=== PATIENT | female | born 1940 | race Caucasian/White ===

== ENCOUNTER → 2017-05-10 | Outpatient (CLI) | payer MEDICARE, MEDICAID ==
[~2017-05-10] MED LIST: ALBUTEROL SULF8.5 GM INH; ALBUTEROL2.5 MG/31 INH; ANTIVERT25 MG PO; AVELOX ABC PAC400 MG PO; BAYER CHEWABLE81 MG PO; CELEBREX 200 M200 M1 PO; DICLOFENAC SODI25 MG PO; DIOVAN HCT 80-1 EACH; DOXYCYCLINE 10100 MG PO; FOLIC ACID 40400 MCG PO; GORDO-VITE E15 GM PO; HYDROCHLOROTH12.5 M1 PO; IBUPROFEN 800800 M1 PO; LEVOTHROID125 MCG; LEVOTHYROXINE 0.1 MG PO; LISINOPRIL20 MG PO; LOPRESSOR25 PO; MUCINEX TA600 MG/TA2 PO; MULTI VITAMIN1 EACH PO; NORFLEX100 MG PO; PERCOCET 5-3251 EACH PO; PREDNISONE 20 M20 M1 PO; PRINZIDE 20-121 EACH; PROAIR HFA8.5 GM INH; Prinzide 20-12.5 Mg PO; QUESTRAN POWDE378 GM PO; RANITIDINE 150150 M1; SYNTHROID125 MCG PO; TESSALON200 MG PO; TIROSINT100 MCG; TRAMADOL 50 MG50 MG PO; VENTOLIN HFA 1818 GM INH; VENTOLIN17 GM; VITAMIN D1000 UNI1 PO; VITAMIN E400 UNI2 PO; ZANTAC 150MG T150 MG PO; ZOFRAN4 MG PO
== END ==
LOC: M.RAD 14:41
DX: M25.551 Pain in right hip (principal); M79.604 Pain in right leg; Z96.653 Presence of artificial knee joint, bilateral; W19.XXXS Unspecified fall, sequela

== ENCOUNTER 2017-05-29 20:22 | Emergency (ER) | payer MEDICARE, MEDICAID ==
[~2017-05-29] VITALS: Ht 167.6 cm; Wt 96.2 kg
[~2017-05-29 20:22] MED LIST changes: -ANTIVERT25 MG PO; -DICLOFENAC SODI25 MG PO; -LISINOPRIL20 MG PO; -ZOFRAN4 MG PO
[2017-05-29] MEDS ORDERED: DICLOFENAC SODI25 MG PO (20:39)
[2017-05-29] MEDS ORDERED: LISINOPRIL20 MG PO (20:39)
[2017-05-29 20:57] LABS: ABSOLUTE BASOPHILS 0.1 thou/uL (0.0-0.2); ABSOLUTE EOSINOPHILS 0.1 thou/uL (0.0-0.7); ABSOLUTE LYMPHOCYTES 2.2 thou/uL (0.8-5.3); ABSOLUTE MONOCYTES 0.8 thou/uL (0.0-1.2); ABSOLUTE NEUTROPHILS 8.4 thou/uL (1.6-8.1); BASOPHILS 0.6 %; EOSINOPHILS 0.8 %; HEMATOCRIT 40.8 % (37.0-47.0); HEMOGLOBIN 13.9 gm/dL (12.0-15.0); LYMPHOCYTES 19.1 %; MCH 29.7 pg (26.0-34.0); MCHC 34.1 g/dL (28.0-37.0); MONOCYTES 7.2 %; MPV 8.4 fl. (7.2-11.1); NUCLEATED RBCS 0 /100WBC; PLATELET COUNT* 287 thou/uL (150-400); POLYS 72.3 %; RBC 4.69 mil/uL (4.20-5.00); RDW-CV 14.4 % (10.5-14.5); WBC 11.6 thou/uL (4.0-11.0)
[2017-05-29 21:14] LABS: ANION GAP 8 mmol/L (7-16); BUN 18 mg/dL (7-18); CALCIUM 9.5 mg/dL (8.5-10.1); CHLORIDE 91 mmol/L (98-107); CO2 31 mmol/L (21-32); CREATININE 0.9 mg/dL (0.6-1.3); GLUCOSE 116 mg/dL (70-99); SODIUM 130 mmol/L (136-145)
[2017-05-29 21:25] LABS: ALBUMIN 3.7 g/dL (3.4-5.0); ALKALINE PHOSPHATASE 72 U/L (46-116); LIPASE 274 U/L (73-393); NT-PRO BRAIN NAT PEPTIDE 110 pg/mL (<300); SGOT 23 U/L (15-37); SGPT 28 U/L (30-65); TOTAL BILIRUBIN 0.5 mg/dL (<0.1-1.0); TOTAL PROTEIN 7.1 g/dL (6.4-8.2); TROPONIN-I LEVEL <0.06 ng/mL (<0.06)
[2017-05-30] MEDS ORDERED: ZOFRAN4 MG PO (00:52)
[2017-05-30] MEDS ORDERED: ANTIVERT25 MG PO (00:52)
[2017-05-30 01:09] VITALS: BP 170/80
--- NOTE | 2017-05-30 15:17 | EKG ---
[place] [address] ELECTROCARDIOGRAM REPORT Name: NAN HOLM [id number] Admission: 05/29/17 Attend Phys: Discharge: 05/30/17 Date of : 40 Report #: [id number] THIS REPORT FOR: //name// [facility] ED Test Date: 2017-05-29 Test Time: 20:57:06 Pat Name: NAN HOLM Department: Room: Gender: F Supplier Quality Manager: CALEB : 1940 Requested By: Carlos Tavarez Order Number: [id number] : Alexandro Bustillo Measurements Intervals [place] Rate: 64 P: 15 WY: 161 QRS: -22 QRSD: 109 T: 25 QT: 390 QTc: 403 Interpretive Statements Sinus rhythm Borderline left axis deviation Compared to ECG 01/01/2015 22:19:51 No significant changes Electronically Signed On 05-30-2017 15:17:32 CDT by Alexandro Bustillo [email or web address] <ELECTRONICALLY SIGNED> By: Alexandro Bustillo MD, [facility] 05/30/17 1517 56 56 Alexandro Bustillo MD, FACC /EPI
== END 2017-05-30 01:12 | disposition home or self-care (01) ==
LOC: M.ERS 20:22
PROVIDERS: Emergency Medicine
DX: R42 Dizziness and giddiness (principal); E03.9 Hypothyroidism, unspecified; I10 Essential (primary) hypertension; Z96.653 Presence of artificial knee joint, bilateral; Z88.5 Allergy status to narcotic agent; Z88.0 Allergy status to penicillin

== ENCOUNTER → 2017-12-18 | Outpatient (CLI) | payer MEDICARE, MEDICAID ==
[~2017-12-18] MED LIST changes: +ANTIVERT25 MG PO; +DICLOFENAC SODI25 MG PO; +LISINOPRIL20 MG PO; +ZOFRAN4 MG PO
== END ==
LOC: M.RAD 07:00
DX: Z12.31 Encounter for screening mammogram for malignant neoplasm of breast (principal); I10 Essential (primary) hypertension; E03.9 Hypothyroidism, unspecified

== ENCOUNTER 2018-04-04 03:18 | Inpatient (IN) | payer MEDICARE, MEDICAID ==
[~2018-04-04] VITALS: Ht 165.1 cm; Wt 98.0 kg
[2018-04-04] VITALS (7 sets, daily range): BP systolic 125–198; BP diastolic 59–102
[~2018-04-04 03:18] MED LIST changes: -FOLIC ACID 40400 MCG PO; -LEVOTHYROXINE 0.1 MG PO; +SUPER B-COMPL400 MCG PO; +SYNTHROID100 MC1 PO
[2018-04-04] MEDS ORDERED: CIPRO500 MG PO (03:26)
[2018-04-04 03:45] LABS: URINE BILIRUBIN NEGATIVE (Negative); URINE BLOOD NEGATIVE (Negative); URINE CLARITY CLEAR; URINE COLOR YELLOW; URINE GLUCOSE-RANDOM NEGATIVE (Negative); URINE KETONES NEGATIVE (Negative); URINE LEUKOCYTES-REFLEX NEGATIVE (Negative); URINE NITRITE-REFLEX NEGATIVE (Negative); URINE PROTEIN NEGATIVE (Negative); URINE UROBILINOGEN 0.2 E.U./dl (0.2-1.0)
[2018-04-04 03:50] LABS: ABSOLUTE BASOPHILS 0.1 thou/uL (0.0-0.2); ABSOLUTE EOSINOPHILS 0.1 thou/uL (0.0-0.7); ABSOLUTE LYMPHOCYTES 2.5 thou/uL (0.8-5.3); ABSOLUTE MONOCYTES 0.8 thou/uL (0.0-1.2); ABSOLUTE NEUTROPHILS 6.8 thou/uL (1.6-8.1); BASOPHILS 0.7 %; EOSINOPHILS 1.1 %; HEMATOCRIT 44.5 % (37.0-47.0); LYMPHOCYTES 24.2 %; MCH 30.2 pg (26.0-34.0); MCHC 33.7 g/dL (28.0-37.0); MCV 89.7 fL (80.0-100.0); MONOCYTES 8.1 %; MPV 8.4 fl. (7.2-11.1); NUCLEATED RBCS 0 /100WBC; PLATELET COUNT* 307 thou/uL (150-400); POLYS 65.9 %; RBC 4.96 mil/uL (4.20-5.00); RDW-CV 13.5 % (10.5-14.5); WBC 10.4 thou/uL (4.0-11.0)
[2018-04-04 03:59] LABS: ANION GAP 8 mmol/L (7-16); BUN 17 mg/dL (7-18); CALCIUM 10.1 mg/dL (8.5-10.1); CHLORIDE 97 mmol/L (98-107); CO2 28 mmol/L (21-32); CREATININE 0.8 mg/dL (0.6-1.3); GLUCOSE 111 mg/dL (70-99); SODIUM 133 mmol/L (136-145)
[2018-04-04 04:03] LABS: INR 1.1
[2018-04-04 04:10] LABS: ALBUMIN 3.5 g/dL (3.4-5.0); ALKALINE PHOSPHATASE 67 U/L (46-116); LIPASE 288 U/L (73-393); MAGNESIUM 1.8 mg/dL (1.8-2.4); NT-PRO BRAIN NAT PEPTIDE 162 pg/mL (<300); SGOT 23 U/L (15-37); SGPT 25 U/L (30-65); TOTAL BILIRUBIN 0.2 mg/dL (<0.1-1.0); TOTAL PROTEIN 7.9 g/dL (6.4-8.2); TROPONIN-I LEVEL <0.06 ng/mL (<0.06)
[2018-04-04] MEDS ORDERED: FLAGYL500 M1 PO (06:18)
--- NOTE | 2018-04-04 06:30 | NUR ---
ADMITTED FROM ER, AMBULATED WITH STEADY GAIT INTO BR AND TO BED. HAVING LIQ STOOLS. DISCUSSED NEED FOR STOOL SPECIMEN AND WOULD PUT PT IN ISOLATION FOR POSS C-DIFF. TELEMETRY APPLIED SHOWING SR. DENIES SOB, CP OR PALPATATIONS. DOES C/O GERD SYMPTOMS, GI COCKTAIL GIVEN IN ED. SEE ADMISSION ASSESSMENT AND HX.
--- NOTE | 2018-04-04 07:20 | NUR ---
CHANGE OF SHIFT BEDSIDE REPORT GIVEN PATIENT SEEN AT BEDSIDE, IN BED RESTING ASSUMED PATIENT CARE
--- NOTE | 2018-04-04 10:25 | EKG ---
[place] [address] ELECTROCARDIOGRAM REPORT Name: NAN HOLM Room: [address] ADM IN M.R.#: [id number] Admission: 04/04/18 Attend Phys: aPu Quesada MD Discharge: Date of : 40 Report #: [id number] THIS REPORT FOR: //name// [facility] ED Test Date: 2018-04-04 Test Time: 03:23:47 Pat Name: NAN HOLM Department: Room: [facility] Gender: F Lasting Machine Operator Bed: AP : 1940 Requested By: Yocasta Chan Order Number: [id number] : Alexandro Bustillo Measurements Intervals [place] Rate: 99 P: 29 [place]: 144 QRS: -21 QRSD: 91 T: 22 QT: 337 QTc: 433 Interpretive Statements Sinus rhythm Inferior infarct, old Compared to ECG 05/29/2017 20:57:06 Myocardial infarct finding now present Electronically Signed On 04-04-2018 10:25:26 CONCRETE BATCHER by Alexandro Bustillo [email or web address] <ELECTRONICALLY SIGNED> By: Alexandro Bustillo MD, [facility] 04/04/18 1025 2 Alexandro Bustillo MD, FACC /EPI
--- NOTE | 2018-04-04 10:58 | NUR ---
Pt is A&O. Resides at home with her youngest son. Pt is independent with ADLs, continues to cook, clean and drive. Pt has a walker and cane at home that she can use if needed, Pt stated that she has not needed to use them recently. No home o2. Hx of HH, but does not recall the name of the agency. No hx of SNF. BPCI form given to Pt. Goal is home at dc, no needs anticipated.
[2018-04-04] MEDS ORDERED: FLORASTOR250 MG PO (16:31)
--- NOTE | 2018-04-04 18:30 | NUR ---
DISCHARGE TO HOME ALL DC INSTRUCTION GIVEN, ACKNOWLEDGED, SIGNED COPIES GIVEN IV AND HEART MONITOR REMOVED PERSONAL BELONGINGS RETURNED ASSISTED OUT VIA WC GOOD CONDITION TO WAITING CAR
== END 2018-04-04 18:45 | disposition home or self-care (01) | DRG 394 ==
LOC: M.ERS 03:18 → M.2W 04:30 → M.TBA-ER 04:30 → M.2W 06:02
PROVIDERS: Emergency Medicine; ADMIT Family Medicine
DX: K52.1 Toxic gastroenteritis and colitis (principal); E87.1 Hypo-osmolality and hyponatremia; E03.9 Hypothyroidism, unspecified; J45.909 Unspecified asthma, uncomplicated; I10 Essential (primary) hypertension; Z96.653 Presence of artificial knee joint, bilateral; Z90.49 Acquired absence of other specified parts of digestive tract; Z88.6 Allergy status to analgesic agent; Z88.0 Allergy status to penicillin; Z88.2 Allergy status to sulfonamides; Z82.49 Family history of ischemic heart disease and other diseases of the circulatory system; Z80.51 Family history of malignant neoplasm of kidney; Z80.3 Family history of malignant neoplasm of breast; Z79.899 Other long term (current) drug therapy

== ENCOUNTER 2018-11-29 16:46 | Inpatient (IN) | payer MEDICARE, MEDICAID ==
[~2018-11-29] VITALS: Ht 162.6 cm; Wt 98.9 kg
[~2018-11-29 16:46] MED LIST changes: +CIPRO500 MG PO; +FLAGYL500 M1 PO; +FLORASTOR250 MG PO
[2018-11-29 17:05] VITALS: BP 173/70
[2018-11-29 17:17] LABS: ABSOLUTE LYMPHOCYTES 1.9 thou/uL (0.8-5.3); ABSOLUTE MONOCYTES 0.6 thou/uL (0.0-1.2); ABSOLUTE NEUTROPHILS 4.6 thou/uL (1.6-8.1); BASOPHILS 0.6 %; EOSINOPHILS 0.7 %; HEMATOCRIT 40.2 % (37.0-47.0); HEMOGLOBIN 13.8 gm/dL (12.0-15.0); LYMPHOCYTES 26.3 %; MCH 30.2 pg (26.0-34.0); MCHC 34.4 g/dL (28.0-37.0); MCV 87.8 fL (80.0-100.0); MONOCYTES 8.2 %; MPV 8.1 fl. (7.2-11.1); NUCLEATED RBCS 0 /100WBC; PLATELET COUNT* 264 thou/uL (150-400); POLYS 64.2 %; RBC 4.57 mil/uL (4.20-5.00); RDW-CV 13.8 % (10.5-14.5); WBC 7.2 thou/uL (4.0-11.0)
[2018-11-29 17:33] LABS: ANION GAP 6 mmol/L (7-16); BUN 6 mg/dL (7-18); CALCIUM 9.1 mg/dL (8.5-10.1); CHLORIDE 89 mmol/L (98-107); CO2 28 mmol/L (21-32); CREATININE 0.7 mg/dL (0.6-1.3); GLUCOSE 98 mg/dL (70-99); POTASSIUM 3.7 mmol/L (3.5-5.1); SODIUM 123 mmol/L (136-145)
[2018-11-29 17:35] LABS: APTT 30.3 Seconds (25.0-31.3); INR 1.1
[2018-11-29 17:43] LABS: ALBUMIN 3.4 g/dL (3.4-5.0); ALKALINE PHOSPHATASE 70 U/L (46-116); NT-PRO BRAIN NAT PEPTIDE 248 pg/mL (<300); SGOT 19 U/L (15-37); SGPT 23 U/L (30-65); TOTAL BILIRUBIN 0.6 mg/dL (<0.1-1.0); TOTAL PROTEIN 7.4 g/dL (6.4-8.2); TROPONIN-I LEVEL <0.06 ng/mL (<0.06)
[2018-11-29 18:24] LABS: URINE BILIRUBIN NEGATIVE (Negative); URINE BLOOD NEGATIVE (Negative); URINE CLARITY CLEAR; URINE COLOR YELLOW; URINE GLUCOSE-RANDOM NEGATIVE (Negative); URINE KETONES NEGATIVE (Negative); URINE LEUKOCYTES-REFLEX NEGATIVE (Negative); URINE NITRITE-REFLEX NEGATIVE (Negative); URINE PROTEIN NEGATIVE (Negative); URINE SPECIFIC GRAVITY <= 1.005 (1.005-1.030); URINE UROBILINOGEN 0.2 E.U./dl (0.2-1.0)
[2018-11-29 19:45] VITALS: BP 138/70
--- NOTE | 2018-11-29 19:58 | NUR ---
REPORT GIVEN TO DALLAS AVILES RN. PT TRANSPORTED TO ROOM 229.
[2018-11-29 20:00] VITALS: BP 152/68
[2018-11-30] VITALS: BP 136/76
[2018-11-30 04:00] VITALS: BP 124/63
--- NOTE | 2018-11-30 04:32 | NUR ---
PATIENT SLEPT WELL DURING THIS SHIFT. PT IS ALERT/ORIENTED X4. PT IS SINUS RHYTHM ON TELECOMMUNICATIONS LINE INSTALLER. PT IS SALINE LOCKED. PT USED CALL LIGHT APPROPRIATELY FOR ASSISTANCE TO BSC. PT ABLE TO PIVOT TO COMMODE, VOIDS YELLOW URINE. PT DENIES PAIN/NAUSEA. FREQUENTLY USED ITEMS AND CALL LIGHT WITHIN REACH. SIDERAILS UPX3 AND BED ALARM ON. WILL CONTINUE TO MONITOR.
[2018-11-30 05:00] LABS: ABSOLUTE EOSINOPHILS 0.1 thou/uL (0.0-0.7); ABSOLUTE LYMPHOCYTES 1.8 thou/uL (0.8-5.3); ABSOLUTE MONOCYTES 0.7 thou/uL (0.0-1.2); BASOPHILS 0.4 %; EOSINOPHILS 1.1 %; HEMATOCRIT 40.1 % (37.0-47.0); HEMOGLOBIN 13.4 gm/dL (12.0-15.0); MCH 29.4 pg (26.0-34.0); MCHC 33.4 g/dL (28.0-37.0); MCV 88.1 fL (80.0-100.0); MPV 8.6 fl. (7.2-11.1); NUCLEATED RBCS 0 /100WBC; PLATELET COUNT* 244 thou/uL (150-400); POLYS 60.5 %; RBC 4.55 mil/uL (4.20-5.00); RDW-CV 14.1 % (10.5-14.5); WBC 6.6 thou/uL (4.0-11.0)
[2018-11-30 05:10] LABS: CALCIUM 8.8 mg/dL (8.5-10.1); CREATININE 0.6 mg/dL (0.6-1.3); MAGNESIUM 1.8 mg/dL (1.8-2.4); POTASSIUM 3.4 mmol/L (3.5-5.1)
[2018-11-30 08:00] VITALS: BP 133/66
--- NOTE | 2018-11-30 10:49 | EKG ---
[place] [address] ELECTROCARDIOGRAM REPORT Name: NAN HOLM Room: [address] ADM IN M.R.#: [id number] Admission: 11/29/18 Attend Phys: Pau Quesada MD Discharge: Date of : 40 Report #: [id number] THIS REPORT FOR: //name// [facility] ED Test Date: 2018-11-29 Test Time: 17:43:24 Pat Name: NAN HOLM Department: Room: [facility] Gender: F Chief Librarian Branch: : 1940 Requested By: Biju Onofre Order Number: [id number] MD: Alexandro Bustillo Measurements Intervals [place] Rate: 60 P: 12 [place]: 152 QRS: -38 QRSD: 101 T: 15 QT: 416 QTc: 416 Interpretive Statements Sinus rhythm Left axis deviation Compared to ECG 04/04/2018 03:23:47 Left-axis deviation now present Myocardial infarct finding no longer present Electronically Signed On 11-30-2018 10:48:57 CDT by Alexandro Bustillo [email or web address] <ELECTRONICALLY SIGNED> By: Alexandro Bustillo MD, [facility] 11/30/18 1048 1743 1743 Alexandro Bustillo MD, [facility] /EPI
[2018-11-30 15:53] VITALS: BP 136/70
--- NOTE | 2018-11-30 17:38 | NUR ---
ASSUMED PT CARE AT 0700, PT A&O X4, VSS, RA, REMAINS ON MED SURG STATUS. UP WITH WALKER AND STANDBY ASSIST TO BATHROOM. FULL ASSESSMENT CHARTED. PT REMAINS ON ABTS FOR SINUSITIS, DENIES ANY DIZZINESS/SOA THIS SHIFT. HOURLY ROUNDING COMPLETED.
[2018-11-30 20:00] VITALS: BP 115/59
[2018-12-01 05:02] LABS: CALCIUM 9.1 mg/dL (8.5-10.1); CREATININE 0.6 mg/dL (0.6-1.3); POTASSIUM 4.1 mmol/L (3.5-5.1)
--- NOTE | 2018-12-01 05:30 | NUR ---
PATIENT SLEPT WELL DURING THIS SHIFT. PT USES CALL LIGHT APPROPRIATELY FOR ASSISTANCE TO BATHROOM. PT VOIDS YELLOW URINE. PT IS ON ROOM AIR. PT DENIES PAIN/NAUSEA. FREQUENTLY USED ITEMS AND CALL LIGHT WITHIN REACH. SIDERAILS UPX2. WILL CONTINUE TO MONITOR.
[2018-12-01 08:00] VITALS: BP 133/69
[2018-12-01 12:07] VITALS: BP 133/69
[2018-12-01] MEDS ORDERED: AZITHROMYCIN 2250 MG PO (13:06)
[2018-12-01] MEDS ORDERED: FLONASE 0.05%50 MCG NASAL (13:07)
[2018-12-01 14:00] VITALS: BP 133/69
--- NOTE | 2018-12-01 14:30 | NUR ---
MET WITH PT TO DISCUSS HOME SITUATION/DC PLANNING. PT LIVES WITH SON. SHE IS ABLE TO DRIVE BUT ONLY GETS OUT 'WHEN I HAVE TO.' PT HAS AN OLD WALKER OF HER MOTHER'S SHE USES. SHE IS ABLE TO DO HER OWN ADLS, SON DOES COOKING AND HE WORKS. PT HAS HAD HH IN PAST BUT NOT ABLE TO REMEMBER NAME OF AGENCY. DISCUSSED OPTIONS, PT HAD NO PREFERENCE BUT STATED THERAPY RE: VESTIBULAR EXERCISES. ARRANGED FOR [facility] TO COME TALK WITH PT ABOUT THEIR PROGRAM. SHE IS AGREEABLE TO THEIR SERVICES. ALSO ORDERED WALKER THRU [facility] [employer]. WAS OK'D BY [facility] TO DISPENSE. PHYLLIS/PT TO DISPENSE WALKER TO PT PRIOR TO DC TODAY
--- NOTE | 2018-12-01 15:45 | NUR ---
PT A/O. MED SURG STATUS AND ALL VSS ON ROOM AIR. DENIES CP, SOA. LOOKING FORWARD TO DC TODAY. PLEASE SEE ASSESSMENT FOR ADDITIONAL INFORMATION. WILL CONT TO MONITOR PT VERBALIZES UNDERSTANDING OF DISCHARGE INSTRUCTIONS AND MEDS. DC HOME WITH SON AT [facility] 1530.
== END 2018-12-01 15:35 | disposition home health service (06) | DRG 641 ==
LOC: M.ERS 16:46 → M.TBA-ER 18:05 → M.2W 18:05
PROVIDERS: Family Medicine; ADMIT Family Medicine
DX: E87.1 Hypo-osmolality and hyponatremia (principal); I10 Essential (primary) hypertension; E03.9 Hypothyroidism, unspecified; J32.9 Chronic sinusitis, unspecified; G89.29 Other chronic pain; J45.20 Mild intermittent asthma, uncomplicated; M54.40 Lumbago with sciatica, unspecified side; E87.6 Hypokalemia; Z96.653 Presence of artificial knee joint, bilateral; Z90.49 Acquired absence of other specified parts of digestive tract; Z79.899 Other long term (current) drug therapy; Z88.5 Allergy status to narcotic agent; Z88.0 Allergy status to penicillin; Z88.2 Allergy status to sulfonamides; Z88.8 Allergy status to other drugs, medicaments and biological substances

== ENCOUNTER → 2018-12-29 | Outpatient (CLI) | payer MEDICARE, MEDICAID ==
[~2018-12-29] MED LIST changes: +AZITHROMYCIN 2250 MG PO; +FLONASE 0.05%50 MCG NASAL
== END ==
LOC: M.RAD 10:50 → EDSTATUS 10:53
DX: Z12.31 Encounter for screening mammogram for malignant neoplasm of breast (principal)

== ENCOUNTER 2019-08-03 09:09 | Inpatient (IN) | payer MEDICARE, MEDICAID ==
[~2019-08-03] VITALS: Ht 162.6 cm; Wt 96.7 kg
--- NOTE | ~2019-08-03 | CON ---
[address] [address] CONSULTATION Name: MIHAINAN Room: [address] ADM IN M.R.#: [id number] Admission: 08/03/19 Attend Phys: Lanre Maldonado Discharge: Date of : 40 Report #: [id number] THIS REPORT FOR: //name// cc: Celia Stinson Maggie M. DO THIS REPORT FOR: //name// CC: Lanre Underwood DATE OF SERVICE: 08/03/2019 HISTORY OF PRESENT ILLNESS: A 79-year-old female patient who is difficult to evaluate. The patient is pleasant, but she stops on a topic and then she goes on without able to fully focus what I am trying to elicit. So part of the history is from the patient and part of the history is from the record. I will also see the patient in more detail tomorrow. Apparently, the patient had an episode of weakness on the right side, which resolved. She thinks it lasted just a few minutes. She said she has some tremor and she had some TIA before, but I am not sure how did that affect her and she does not stay on that topic long enough for me to be able to discuss that. In between, she brings some episode of syncope, but she is not able to describe that further either. REVIEW OF SYSTEMS: Positive for herniated disks, sciatica, shoulder surgery, colon resection vertigo that was a relevant 14-point review of system. PAST MEDICAL HISTORY: Positive for TIA, but I am not certain how did that affect her. FAMILY HISTORY: Unremarkable. SOCIAL HISTORY: Unremarkable. PHYSICAL EXAMINATION: Indicates she is alert. She can follow simple commands. Her speech looks intact. Cranial nerve examinations appear mostly unremarkable. She moves all 4 extremities. There is no cerebellar sign. I could not look at the fundus. Cardiac and respiratory examination is unremarkable. Her blood pressure is 184/84, respirations 21, pulse is 77, temperature is 97.5. LABORATORY DATA: White count is 6.9. Sodium is 134. She did have a CT scan of the head, which appear unremarkable. IMPRESSION: Difficult to tell between a TIA and spine pathology. I will get an MRI of the brain and lumbar spine and see what it shows and decide about [place] [address] CONSULTATION Name: NAN HOLM Room: [address] IN [facility]#: [id number] Admission: 08/03/19 Attend Phys: Lanre Maldonado Discharge: Date of : 40 Report #: [id number] Thank you very much for this referral. By: [id number] Laboy MD /nt
[~2019-08-03 09:09] MED LIST changes: +DECARA625 MCG PO
[2019-08-03 09:11] VITALS: BP 155/72
[2019-08-03 09:47] LABS: ABSOLUTE BASOPHILS 0.1 thou/uL (0.0-0.2); ABSOLUTE EOSINOPHILS 0.1 thou/uL (0.0-0.7); ABSOLUTE LYMPHOCYTES 1.5 thou/uL (0.8-5.3); ABSOLUTE MONOCYTES 0.5 thou/uL (0.0-1.2); ABSOLUTE NEUTROPHILS 4.8 thou/uL (1.6-8.1); BASOPHILS 0.8 %; EOSINOPHILS 1.1 %; HEMATOCRIT 44.5 % (37.0-47.0); HEMOGLOBIN 15.2 gm/dL (12.0-15.0); LYMPHOCYTES 21.1 %; MCH 29.9 pg (26.0-34.0); MCHC 34.2 g/dL (28.0-37.0); MCV 87.4 fL (80.0-100.0); MONOCYTES 7.3 %; MPV 8.5 fl. (7.2-11.1); NUCLEATED RBCS 0 /100WBC; PLATELET COUNT* 281 thou/uL (150-400); POLYS 69.7 %; RBC 5.09 mil/uL (4.20-5.00); RDW-CV 14.1 % (10.5-14.5); WBC 6.9 thou/uL (4.0-11.0)
[2019-08-03 09:54] LABS: CALCIUM 9.1 mg/dL (8.5-10.1); POTASSIUM 3.7 mmol/L (3.5-5.1)
[2019-08-03 09:58] LABS: ALBUMIN 3.6 g/dL (3.4-5.0); TOTAL BILIRUBIN 0.5 mg/dL (<0.1-1.0); TOTAL PROTEIN 7.8 g/dL (6.4-8.2)
[2019-08-03 16:31] VITALS: BP 152/68
[2019-08-03 16:40] VITALS: BP 184/84
--- NOTE | 2019-08-03 17:08 | EKG ---
[place] [address] ELECTROCARDIOGRAM REPORT Name: NAN HOLM Room: [address] ADM IN M.R.#: [id number] Admission: 08/03/19 Attend Phys: Lanre tijerina Sa Discharge: Date of : 40 Date of Service: 08/03/19 0951 Report #: [id number] THIS REPORT FOR: //name// [facility] ED Test Date: 2019-08-03 Test Time: 09:51:42 Pat Name: NAN HOLM Department: Room: [facility] Gender: F Adjunct Professor: SHEEBA : 1940 Requested By: Tony Jacobs Order Number: [id number] MD: Jaycob Hills Measurements Intervals [place] Rate: 70 P: -18 MN: 139 QRS: -29 QRSD: 97 T: 14 QT: 368 QTc: 398 Interpretive Statements Sinus rhythm Left axis deviation Compared to ECG 11/29/2018 17:43:24 No significant changes noted Electronically Signed On 08-03-2019 17:06:41 CDT by Jaycob Hills [email or web address] <ELECTRONICALLY SIGNED> By: Jaycob Hills MD, FACC 08/03/19 1706 0951 0951 Jaycob Hills MD, [facility] /EPI
[2019-08-03 17:42] LABS: AMP/METHAMP Negative (Negative); BARBITURATES Negative (Negative); BENZODIAZEPINES Negative (Negative); COCAINE Negative (Negative); METHADONE Negative (Negative); OPIATES Negative (Negative); PCP Negative (Negative); THC Negative (Negative)
--- NOTE | 2019-08-03 18:20 | NUR ---
PATIENT ADMITTED TO ROOM 203, [facility] IS 0 AT THIS TIME. SOME WEAKNESS BUT GENERAL. ABLE TO WALK TO BATHROOM WITH WALKER. BLOOD PRESSURE HIGH, WILL GIVE MEDICATIONS PER EMAR. NO PAIN, NAUSEA OR SHORTNESS OF AIR. BED IN LOWEST POSITION, CALL LIGHT IN REACH, CARDIAC MONTITOR IN PLACE.
[2019-08-03 20:00] VITALS: BP 153/68
--- NOTE | 2019-08-03 20:00 | NUR ---
RECEIVED REPORT AND ASSUMED CARE OF PT, ASSESSMENT COMPLETED. VERY PLEASANT RESTING IN BED WATCHING TV. NO WEAKNESS OR SPEECH DIFFICULTY NOTED. TELEMETRY ON SHOWING SR. WILL CONT TO MONITOR AND ASSIST NEEDED.
[2019-08-03 23:40] VITALS: BP 177/74
[2019-08-04] MEDS ORDERED: QUESTRAN PACKET4 GM PO (00:49)
[2019-08-04 04:28] VITALS: BP 178/86
[2019-08-04 04:39] LABS: CHOLESTEROL 121 mg/dL (<200); HDL CHOLESTEROL 41 mg/dL (>40); LDL CHOLESTEROL 67 mg/dL (<100); TRIGLYCERIDE 66 mg/dL (<150); VLDL 13 mg/dL (<40)
[2019-08-04 04:43] LABS: SERUM ASSESSMENT Clear
[2019-08-04 04:49] LABS: ALBUMIN 3.2 g/dL (3.4-5.0); CALCIUM 8.5 mg/dL (8.5-10.1); CREATININE 0.8 mg/dL (0.6-1.3); POTASSIUM 3.7 mmol/L (3.5-5.1); TOTAL BILIRUBIN 0.6 mg/dL (<0.1-1.0); TOTAL PROTEIN 6.5 g/dL (6.4-8.2)
[2019-08-04 06:08] LABS: GLYCOHEMOGLOBIN (HGB A1C) 5.3 % (4.8-5.6)
--- NOTE | 2019-08-04 06:38 | NUR ---
SLEPT WELL TONIGHT. ASSISTED TO BR. C/O DIZZINESS WITH GETTING UP. GAIT STEADY WITH WALKER. NO CHANGE IN ASSESSMENT. TELEMETRY CONT TO SHOW SR. HS GOALS OF REST AND SAFETY ACHIEVED. HOURLY ROUNDING OBSERVED.
--- NOTE | 2019-08-04 10:55 | NUR ---
pt return to room.
--- NOTE | 2019-08-04 11:46 | NUR ---
SPOKE WITH PT.IN ROOM ON PHONE. SHE WAS ALERT AND ORIENTED AND VERY PLEASANT. SHE SAID SHE LIVES WITH HER SON. HE IS HOME ALL THE TIME AND CAN ASSIST HER IF NEEDED. SHE SAID SHE IS NORMALLY INDEPENDENT. DOES HER OWN LAUNDRY, SEWING, COOKS SOME, SHOWERES. SHE HAS A CANE SHE WILL USE. ALSO HAS A WALKER IF NEEDED. SHE HAS HAD HH IN THE PAST ([facility]). SHE ASKED CM TO CALL HER BACK,TO DISCUSS, IF ORDERS IT FOR DISCHARGE.
[2019-08-04 12:27] VITALS: BP 140/77
--- NOTE | 2019-08-04 14:05 | 2DMMODE ---
[place] [address] 2 D/M-MODE ECHOCARDIOGRAM Name: NAN HOLM Room: [address] IN M.R.#: [id number] Admission: 08/03/19 Attend Phys: Lanre tijerina Sa Discharge: Date of : 40 Date of Service: 08/04/19 1403 Report #: [id number] THIS REPORT FOR: cc: Celia Stinson Maggie M. DO Liston, Michael J. MD [facility] ~ APPROVED REPORT Study performed: 08/04/2019 12:22:56 EXAM: Comprehensive 2D, Doppler, and color-flow Echocardiogram BSA: 2.01 HR: 67 bpm BP: 178/86 mmHg Other Information Study Quality: Fair Indications CVA/TIA Echo Enhancing Agent Indication: Rule out Shunt Agent(s) / Amount(s) Used: Agitated Saline cc 2D Dimensions IVSd: 9.62 (7-11mm) LVOT Diam: 18.79 (18-24mm) LVDd: 50.05 mm PWd: 10.00 (7-11mm) Ascending Ao: 27.62 (22-36mm) LVDs: 30.92 (25-40mm) Aortic Root: 24.82 mm Volumes Left Atrial Volume (Systole) LA ESV Index: 18.00 mL/m2 Aortic Valve AoV Peak Delfin.: 1.15 m/s AO Peak Gr.: 5.28 mmHg LVOT Max P.35 mmHg AO Mean Gr.: 3.10 mmHg LVOT Mean P.70 mmHg LVOT Max V: 0.58 m/s AO V2 VTI: 23.37 cm LVOT Mean V: 0.39 m/s SHANIQUE (VTI): 1.50 cm2 LVOT V1 VTI: 12.65 [place] [address] 2 D/M-MODE ECHOCARDIOGRAM Name: NAN HOLM Room: [address] IN .R.#: [id number] Admission: 08/03/19 Attend Phys: Lanre tijerina Sa Discharge: Date of : 40 Date of Service: 08/04/19 1403 Report #: [id number] Mitral Valve E/A Ratio: 0.91 MV Decel. Time: 165.76 ms MV E Max Delfin.: 0.95 m/s MV PHT: 48.07 ms MVA (PHT): 4.58 cm2 TDI E/Lateral E': 8.64 E/Medial E': 11.88 Medial E' Delfin.: 0.08 m/s Lateral E' Delfin.: 0.11 m/s Pulmonary Valve PV Peak Delfin.: 0.85 m/s PV Peak Gr.: 2.88 mmHg Tricuspid Valve RAP Estimate: 5.00 mmHg TR Peak Gr.: 24.62 mmHg RVSP: 29.62 mmHg PA Pressure: 29.62 mmHg Left Ventricle The left ventricle is normal size. There is normal LV segmental wall motion. There is normal left ventricular wall thickness. Left ventricular systolic function is normal. LVEF is 60-65%. Transmitral Doppler flow pattern suggests impaired LV relaxation. Right Ventricle The right ventricle is normal size. The right ventricular systolic function is normal. Atria The left atrium size is normal. Injection of bubbles documented no interatrial shunt. The right atrium size is normal. Aortic Valve The aortic valve is normal in structure. No aortic regurgitation is present. There is no aortic valvular stenosis. Mitral Valve The mitral valve is normal in structure. There is no mitral valve regurgitation noted. No evidence of mitral valve stenosis. Tricuspid Valve The tricuspid valve is normal in structure. [place] [address] 2 D/M-MODE ECHOCARDIOGRAM Name: NAN HOLM Room: [address] IN .R.#: [id number] Admission: 08/03/19 Attend Phys: Lanre tijerina Sa Discharge: Date of : 40 Date of Service: 08/04/19 1403 Report #: [id number] Pulmonic Valve The pulmonary valve is normal in structure. There is no pulmonic valvular regurgitation. Great Vessels The aortic root is normal in size. IVC is normal in size and collapses >50% with inspiration. Pericardium There is no pericardial effusion. <Conclusion> The left ventricle is normal size. There is normal left ventricular wall thickness. Left ventricular systolic function is normal. LVEF is 60-65%. Transmitral Doppler flow pattern suggests impaired LV relaxation. Injection of bubbles documented no interatrial shunt. The pulmonary valve is normal in structure. IVC is normal in size and collapses >50% with inspiration. <ELECTRONICALLY SIGNED> By: Jaycob Hills MD, FACC 08/04/19 1403 140 140 Jaycob Hills MD, FACC /INF
[2019-08-04 17:09] VITALS: BP 151/69
--- NOTE | 2019-08-04 17:59 | NUR ---
PT TOLERATING PO AND WORKED WELL WITH PT. AWAITING REHAB CONSULT AND ECHO. PT PROGRESSING TOWARDS GOALS. WILL CONTINUE TO ASSESS.
[2019-08-04 20:39] VITALS: BP 184/88
[2019-08-04 23:10] VITALS: BP 154/74
[2019-08-05 00:06] VITALS: BP 159/55
[2019-08-05 04:09] VITALS: BP 164/76
--- NOTE | 2019-08-05 07:06 | NUR ---
PT IS ABLE TO COMMUNICATE HER NEEDS TO STAFF EFFECTIVELY. SHE HAS DENIED THE NEED FOR PAIN MEDICATION UP TO THIS TIME. LIKELY ECHO TODAY. POSSIBLE DISCHARGE LATER TODAY. BPs HAVE STILL BEEN ELEVATED AT TIMES.
[2019-08-05 08:00] VITALS: BP 163/83
[2019-08-05] MEDS ORDERED: ASA81BEC PO (09:00)
--- NOTE | 2019-08-05 09:15 | NUR ---
ASSUMED PT CAR AT 0730, PT RESTING IN BED, SATTING 97% ON RA, TRACING SR ON THE FILTER OPERATOR AND HAD NO C/O PAIN OR SHORTNESS OF BREATH. PT IS UP W/ 1 W/ A WALKER. PT GOAL IS TO WORK W/ PT/OT AND WORK ON DC PLANNING TODAY. AM ASSESSMENT CHARTED, MEDS PER MAR, HOURLY ROUNDING OBSERVED, BED IN LOW POSITION, BED ALARM ON, CALL LIGHT W/IN REACH, WILL CONTINUE POC.
[2019-08-05 11:08] VITALS: BP 163/83
[2019-08-05 12:11] VITALS: BP 165/77
--- NOTE | 2019-08-05 12:22 | NUR ---
PT.TO DISCHARGE TODAY HOME WITH HOME HEALTH. DARLYN CALLED SON,LINDA. HE WAS AWARE OF DISCHARGE. HE MOST DEFINITELY WANTED HIS MOM TO HAVE HH PHYSICAL THERAPY AND WANTED TO USE THE AGENCY SHE HAD BEFORE-[facility] HOME CARE. DARLYN SPOKE WITH [facility]/HOME CARE AND FAXED H&P,FACE SHEET AND DISCHARGE SUMMARY TO HIM [phone]. THEY WILL CALL HER TOMORROW TO SET UP APPT.
[2019-08-05 14:09] VITALS: BP 163/83
--- NOTE | 2019-08-05 14:56 | NUR ---
DC ORDERS RECEIVED. DC INSTRUCTIONS, CARE NOTES, F/U APPTS GIVEN TO PT, PT COMMUNICATES UNDERSTANG OF DC TEACHING. IV AND HOUSEPERSON REMOVED. PT DC'D W/ ALL BELONGINGS AND PAPERWORK VIA WC W/ NURSING STAFF TO SON'S PERSONAL VEHICLE. PT DC'D TO HOME W/ HOME HEALTH.
--- NOTE | 2019-08-05 16:02 | NUR ---
PT SCREENED DUE TO SWALLOW ORDER. PER RN AND CHART REVIEW, PT TOLERATING PO INTAKE AND NO BEDSIDE SWALLOW EVALUATION WARRANTED AT THIS TIME.
== END 2019-08-05 14:55 | disposition home health service (06) | DRG 552 ==
LOC: M.ERS 09:09 → M.TBA-ER 12:50 → M.2W 12:50
PROVIDERS: Emergency Medicine Emergency Medical Services; ADMIT Family Medicine
DX: M48.00 Spinal stenosis, site unspecified (principal); G45.9 Transient cerebral ischemic attack, unspecified; M47.816 Spondylosis without myelopathy or radiculopathy, lumbar region; E03.9 Hypothyroidism, unspecified; I10 Essential (primary) hypertension; J45.909 Unspecified asthma, uncomplicated; G89.29 Other chronic pain; H81.10 Benign paroxysmal vertigo, unspecified ear; M54.9 Dorsalgia, unspecified; E66.9 Obesity, unspecified; Z96.653 Presence of artificial knee joint, bilateral; Z90.49 Acquired absence of other specified parts of digestive tract; Z88.5 Allergy status to narcotic agent; Z88.0 Allergy status to penicillin; Z88.2 Allergy status to sulfonamides; Z88.8 Allergy status to other drugs, medicaments and biological substances; Z79.899 Other long term (current) drug therapy; Z68.36 Body mass index [BMI] 36.0-36.9, adult

== ENCOUNTER → 2020-08-17 | Outpatient (CLI) | payer MEDICARE, MEDICAID ==
[~2020-08-17] MED LIST changes: +ASA81BEC PO; +QUESTRAN PACKET4 GM PO
== END ==
LOC: M.RAD 10:00
PROVIDERS: ATTEND Family Medicine
DX: Z12.31 Encounter for screening mammogram for malignant neoplasm of breast (principal); N64.89 Other specified disorders of breast

== ENCOUNTER 2020-09-02 08:42 | Emergency (ER) | payer MEDICARE, MEDICAID ==
[~2020-09-02] VITALS: Ht 162.6 cm; Wt 96.2 kg
[2020-09-02 09:56] LABS: CALCIUM 8.9 mg/dL (8.5-10.1); CREATININE 0.7 mg/dL (0.6-1.3); POTASSIUM 4.6 mmol/L (3.5-5.1)
[2020-09-02 10:01] LABS: ALBUMIN 3.7 g/dL (3.4-5.0); TOTAL BILIRUBIN 0.5 mg/dL (<0.1-1.0); TOTAL PROTEIN 7.7 g/dL (6.4-8.2)
[2020-09-02] MEDS ORDERED: MECLIZINE HCL25 M1 PO ×2 (11:07→11:30)
[2020-09-02] MEDS ORDERED: MEDROLDOSEPACK PO ×2 (11:07→11:30)
[2020-09-02 11:30] VITALS: BP 155/67
== END 2020-09-02 11:30 | disposition home or self-care (01) ==
LOC: M.ERS 08:42
PROVIDERS: Emergency Medicine
DX: R42 Dizziness and giddiness (principal); H83.09 Labyrinthitis, unspecified ear; I10 Essential (primary) hypertension; E03.9 Hypothyroidism, unspecified; J45.909 Unspecified asthma, uncomplicated; M19.90 Unspecified osteoarthritis, unspecified site; Z90.49 Acquired absence of other specified parts of digestive tract; Z88.5 Allergy status to narcotic agent; Z88.0 Allergy status to penicillin; Z88.2 Allergy status to sulfonamides; Z88.6 Allergy status to analgesic agent

== ENCOUNTER 2020-10-02 09:04 | Emergency (ER) | payer MEDICARE, MEDICAID ==
[~2020-10-02] VITALS: Ht 162.6 cm; Wt 94.3 kg
[~2020-10-02 09:04] MED LIST changes: +MECLIZINE HCL25 M1 PO; +MEDROLDOSEPACK PO
[2020-10-02] MEDS ORDERED: HYDROCHLOROTH12.5 M1 PO (09:15)
[2020-10-02 09:37] VITALS: BP 166/87
--- NOTE | 2020-10-03 09:58 | EKG ---
[place] [address] ELECTROCARDIOGRAM REPORT Name: NAN HOLM Room: [facility]#: [id number] Admission: 10/02/20 Attend Phys: Discharge: 10/02/20 Date of : 40 Date of Service: 10/02/20 0910 Report #: [id number] THIS REPORT FOR: //name// [facility] ED Test Date: 2020-10-02 Test Time: 09:10:26 Pat Name: NAN HOLM Department: Room: Gender: Stereotype Finisher: [place] : 1940 Requested By: Biju Onofre Order Number: [id number] MD: Gigi Red Measurements Intervals [place] Rate: 98 P: 13 [place]: 153 QRS: -30 QRSD: 96 T: 25 QT: 343 QTc: 438 Interpretive Statements Sinus rhythm Left axis deviation Abnormal R-wave progression, late transition Baseline wander in lead(s) V5 Compared to ECG 08/03/2019 09:51:42 No significant changes Electronically Signed On 10-03-2020 9:58:20 CDT by Gigi Red [email or web address] <ELECTRONICALLY SIGNED> By: Gigi Red MD, [facility] 10/03/20 0958 0910 Gigi Red MD, [facility] /EPI
== END 2020-10-02 09:38 | disposition home or self-care (01) ==
LOC: M.ERS 09:04
DX: R00.2 Palpitations (principal); E03.9 Hypothyroidism, unspecified; I10 Essential (primary) hypertension; J45.909 Unspecified asthma, uncomplicated; I48.91 Unspecified atrial fibrillation; Z90.49 Acquired absence of other specified parts of digestive tract; Z79.899 Other long term (current) drug therapy; Z88.5 Allergy status to narcotic agent; Z88.0 Allergy status to penicillin; Z88.2 Allergy status to sulfonamides; Z88.6 Allergy status to analgesic agent

== ENCOUNTER 2021-01-29 09:03 | Inpatient (IN) | payer MEDICARE, MEDICAID ==
[~2021-01-29] VITALS: Ht 162.6 cm; Wt 96.0 kg
[2021-01-29 09:06] VITALS: BP 87/38
[2021-01-29 09:39] LABS: ABSOLUTE BASOPHILS 0.1 thou/uL (0.0-0.2); ABSOLUTE EOSINOPHILS 0.1 thou/uL (0.0-0.7); ABSOLUTE LYMPHOCYTES 2.3 thou/uL (0.8-5.3); ABSOLUTE MONOCYTES 0.4 thou/uL (0.0-1.2); ABSOLUTE NEUTROPHILS 8.8 thou/uL (1.6-8.1); BASOPHILS 0.6 %; EOSINOPHILS 0.7 %; HEMATOCRIT 49.2 % (37.0-47.0); HEMOGLOBIN 16.2 gm/dL (12.0-15.0); LYMPHOCYTES 19.4 %; MCH 29.5 pg (26.0-34.0); MCHC 32.9 g/dL (28.0-37.0); MCV 89.5 fL (80.0-100.0); MONOCYTES 3.8 %; MPV 8.5 fl. (7.2-11.1); NUCLEATED RBCS 0 /100WBC; PLATELET COUNT* 385 thou/uL (150-400); POLYS 75.5 %; RBC 5.49 mil/uL (4.20-5.00); RDW-CV 13.9 % (10.5-14.5); WBC 11.6 thou/uL (4.0-11.0)
[2021-01-29 09:48] LABS: CALCIUM 9.4 mg/dL (8.5-10.1); POTASSIUM 3.6 mmol/L (3.5-5.1)
[2021-01-29 09:49] LABS: URINE BILIRUBIN NEGATIVE (Negative); URINE BLOOD NEGATIVE (Negative); URINE CLARITY CLEAR; URINE COLOR YELLOW; URINE GLUCOSE-RANDOM NEGATIVE (Negative); URINE KETONES NEGATIVE (Negative); URINE LEUKOCYTES-REFLEX NEGATIVE (Negative); URINE NITRITE-REFLEX NEGATIVE (Negative); URINE PROTEIN NEGATIVE (Negative); URINE SPECIFIC GRAVITY <= 1.005 (1.005-1.030); URINE UROBILINOGEN 0.2 E.U./dl (0.2-1.0)
[2021-01-29 09:58] LABS: ALBUMIN 3.6 g/dL (3.4-5.0); TOTAL BILIRUBIN 0.5 mg/dL (<0.1-1.0)
--- NOTE | 2021-01-29 11:43 | EKG ---
[place] [address] ELECTROCARDIOGRAM REPORT Name: NAN HOLM Room: [facility]#: [id number] Admission: 01/29/21 Attend Phys: Discharge: Date of : 40 Date of Service: 01/29/21913 Report #: [id number] THIS REPORT FOR: //name// [facility] ED Test Date: 2021-01-29 Test Time: 09:14:32 Pat Name: NAN HOLM Department: Room: Gender: Veterinarian Poultry: : 1940 Requested By: Tony Jacobs Order Number: [id number] MD: Jaycob Hills Measurements Intervals [place] Rate: 98 P: 24 [place]: 143 QRS: -38 QRSD: 92 T: 31 QT: 350 QTc: 447 Interpretive Statements Sinus rhythm Inferior infarct, old Delayed R wave progression Compared to ECG 10/02/2020 09:10:26 Myocardial infarct finding now present Left-axis deviation no longer present Electronically Signed On 01-29-2021 11:43:09 ENGINEER SYSTEM ADMINISTRATOR by Jaycob Hills [email or web address] <ELECTRONICALLY SIGNED> By: Jaycob Hills MD, FACC 01/29/21 1143 3 3 Jaycob Hills MD, FACC /EPI
[2021-01-29 15:40] VITALS: BP 115/62
[2021-01-29 19:40] VITALS: BP 123/56
[2021-01-29 23:40] VITALS: BP 137/65
[2021-01-30 03:40] VITALS: BP 136/65
[2021-01-30 03:55] LABS: HEMATOCRIT 38.6 % (37.0-47.0); MCH 29.7 pg (26.0-34.0); MCHC 33.2 g/dL (28.0-37.0); MCV 89.5 fL (80.0-100.0); MPV 8.1 fl. (7.2-11.1); RBC 4.31 mil/uL (4.20-5.00); RDW-CV 14.1 % (10.5-14.5)
[2021-01-30 03:59] LABS: HEMOGLOBIN 12.8 gm/dL (12.0-15.0)
[2021-01-30 04:17] LABS: ALBUMIN 2.7 g/dL (3.4-5.0); CALCIUM 8.3 mg/dL (8.5-10.1); CREATININE 0.8 mg/dL (0.6-1.3); MAGNESIUM 1.9 mg/dL (1.8-2.4); POTASSIUM 3.7 mmol/L (3.5-5.1); TOTAL BILIRUBIN 0.5 mg/dL (<0.1-1.0); TOTAL PROTEIN 6.2 g/dL (6.4-8.2)
[2021-01-30 07:09] VITALS: BP 139/65
[2021-01-30 11:11] VITALS: BP 132/66
[2021-01-30 14:34] VITALS: BP 188/85
[2021-01-30 16:15] VITALS: BP 150/71
[2021-01-30 20:15] VITALS: BP 151/62
[2021-01-31 02:24] VITALS: BP 119/67
[2021-01-31 05:34] LABS: HEMATOCRIT 37.5 % (37.0-47.0); HEMOGLOBIN 12.5 gm/dL (12.0-15.0); MCH 29.3 pg (26.0-34.0); MCHC 33.2 g/dL (28.0-37.0); MCV 88.2 fL (80.0-100.0); MPV 8.4 fl. (7.2-11.1); RBC 4.26 mil/uL (4.20-5.00); RDW-CV 13.7 % (10.5-14.5); WBC 6.9 thou/uL (4.0-11.0)
[2021-01-31 05:42] LABS: ALBUMIN 2.8 g/dL (3.4-5.0); CALCIUM 8.3 mg/dL (8.5-10.1); CREATININE 0.7 mg/dL (0.6-1.3); MAGNESIUM 1.8 mg/dL (1.8-2.4); POTASSIUM 3.6 mmol/L (3.5-5.1); TOTAL BILIRUBIN 0.7 mg/dL (<0.1-1.0); TOTAL PROTEIN 6.5 g/dL (6.4-8.2)
[2021-01-31 06:06] VITALS: BP 155/72
[2021-01-31 08:00] VITALS: BP 153/64
[2021-01-31 12:00] VITALS: BP 155/64
[2021-01-31 19:15] VITALS: BP 156/70
[2021-02-01 00:10] VITALS: BP 182/83
[2021-02-01 03:49] LABS: HEMATOCRIT 37.6 % (37.0-47.0); HEMOGLOBIN 12.7 gm/dL (12.0-15.0); MCH 29.7 pg (26.0-34.0); MCHC 33.8 g/dL (28.0-37.0); MCV 87.9 fL (80.0-100.0); RBC 4.28 mil/uL (4.20-5.00); RDW-CV 13.6 % (10.5-14.5); WBC 7.9 thou/uL (4.0-11.0)
[2021-02-01 04:00] VITALS: BP 171/79
[2021-02-01 04:00] LABS: CALCIUM 8.5 mg/dL (8.5-10.1); CREATININE 0.7 mg/dL (0.6-1.3); MAGNESIUM 1.9 mg/dL (1.8-2.4); POTASSIUM 3.4 mmol/L (3.5-5.1)
[2021-02-01 07:41] VITALS: BP 176/84
[2021-02-01 12:00] VITALS: BP 186/79
[2021-02-01 16:48] VITALS: BP 176/78
[2021-02-01 20:00] VITALS: BP 163/72
[2021-02-02 01:03] VITALS: BP 176/84
[2021-02-02 03:50] LABS: HEMOGLOBIN 12.7 gm/dL (12.0-15.0); MCH 29.5 pg (26.0-34.0); MCHC 33.3 g/dL (28.0-37.0); MCV 88.6 fL (80.0-100.0); MPV 8.2 fl. (7.2-11.1); RBC 4.29 mil/uL (4.20-5.00); RDW-CV 14.1 % (10.5-14.5); WBC 8.2 thou/uL (4.0-11.0)
[2021-02-02 04:00] VITALS: BP 167/80
[2021-02-02 04:06] LABS: ALBUMIN 2.9 g/dL (3.4-5.0); CALCIUM 8.4 mg/dL (8.5-10.1); CREATININE 0.7 mg/dL (0.6-1.3); MAGNESIUM 1.9 mg/dL (1.8-2.4); POTASSIUM 3.6 mmol/L (3.5-5.1); TOTAL BILIRUBIN 0.6 mg/dL (<0.1-1.0); TOTAL PROTEIN 6.8 g/dL (6.4-8.2)
[2021-02-02 08:00] VITALS: BP 169/76
[2021-02-02] MEDS ORDERED: PREVALITE PACKET4 GM PO (10:53)
[2021-02-02] MEDS ORDERED: CLEOCIN HCL150 MG PO (10:53)
[2021-02-02] MEDS ORDERED: HYDROCHLOROTH12.5 M1 PO (10:53)
[2021-02-02 12:00] VITALS: BP 158/76
[2021-02-02 15:25] VITALS: BP 158/76
[2021-02-02 15:29] VITALS: BP 158/76
== END 2021-02-02 16:40 | disposition home health service (06) | DRG 872 ==
LOC: M.ERS 09:03 → M.TBA-ER 11:37 → M.ORTHSURG 01-30 17:03
PROVIDERS: Emergency Medicine Emergency Medical Services; ADMIT Internal Medicine; ATTEND Internal Medicine
DX: A41.9 Sepsis, unspecified organism (principal); E44.1 Mild protein-calorie malnutrition; A04.9 Bacterial intestinal infection, unspecified; Z20.822 Contact with and (suspected) exposure to COVID-19; E03.9 Hypothyroidism, unspecified; I10 Essential (primary) hypertension; Z96.653 Presence of artificial knee joint, bilateral; I95.9 Hypotension, unspecified; G89.29 Other chronic pain; M54.9 Dorsalgia, unspecified; M19.90 Unspecified osteoarthritis, unspecified site; J45.909 Unspecified asthma, uncomplicated; I48.91 Unspecified atrial fibrillation; Z90.49 Acquired absence of other specified parts of digestive tract; Z88.6 Allergy status to analgesic agent; Z88.0 Allergy status to penicillin; Z88.2 Allergy status to sulfonamides; Z88.8 Allergy status to other drugs, medicaments and biological substances; Z79.899 Other long term (current) drug therapy; Z68.36 Body mass index [BMI] 36.0-36.9, adult

== ENCOUNTER 2021-05-02 10:44 | Emergency (ER) | payer MEDICARE, MEDICAID ==
[~2021-05-02] VITALS: Ht 160 cm; Wt 94.8 kg
[~2021-05-02 10:44] MED LIST changes: +CLEOCIN HCL150 MG PO; +PREVALITE PACKET4 GM PO
[2021-05-02 11:08] LABS: HEMATOCRIT 44.9 % (37.0-47.0); MCH 29.5 pg (26.0-34.0); MCHC 33.5 g/dL (28.0-37.0); MCV 88.1 fL (80.0-100.0); MPV 8.8 fl. (7.2-11.1); NUCLEATED RBCS 0 /100WBC; PLATELET COUNT* 282 thou/uL (150-400); RBC 5.09 mil/uL (4.20-5.00); RDW-CV 13.5 % (10.5-14.5); WBC 15.5 thou/uL (4.0-11.0)
[2021-05-02 11:17] LABS: CALCIUM 9.5 mg/dL (8.5-10.1); CREATININE 0.8 mg/dL (0.6-1.3); POTASSIUM 3.9 mmol/L (3.5-5.1)
[2021-05-02 11:21] LABS: TOTAL BILIRUBIN 0.5 mg/dL (<0.1-1.0); TOTAL PROTEIN 8.4 g/dL (6.4-8.2)
[2021-05-02 12:40] LABS: URINE BILIRUBIN NEGATIVE (Negative); URINE BLOOD NEGATIVE (Negative); URINE CLARITY CLEAR; URINE COLOR YELLOW; URINE GLUCOSE-RANDOM NEGATIVE (Negative); URINE KETONES NEGATIVE (Negative); URINE LEUKOCYTES NEGATIVE (Negative); URINE NITRITE NEGATIVE (Negative); URINE PROTEIN NEGATIVE (Negative); URINE SPECIFIC GRAVITY <= 1.005 (1.005-1.030); URINE UROBILINOGEN 0.2 E.U./dl (0.2-1.0)
[2021-05-02 12:43] LABS: ABSOLUTE LYMPHOCYTES 0.8 thou/uL (0.8-5.3); ABSOLUTE MONOCYTES 0.8 thou/uL (0.0-1.2); ABSOLUTE NEUTROPHILS 13.8 thou/uL (1.6-8.1); PLATELET ESTIMATE ADEQUATE
[2021-05-02] MEDS ORDERED: FAMOTIDINE 20 M20 MG PO (13:36)
[2021-05-02] MEDS ORDERED: ZOFRAN ODT4 MG PO (13:37)
[2021-05-02 14:00] VITALS: BP 159/85
--- NOTE | 2021-05-02 15:51 | EKG ---
[place] [address] ELECTROCARDIOGRAM REPORT Name: NAN HOLM Room: [facility]#: [id number] Admission: 05/02/21 Attend Phys: Discharge: 05/02/21 Date of : 40 Date of Service: 05/02/21 1119 Report #: [id number] THIS REPORT FOR: //name// [facility] ED Test Date: 2021-05-02 Test Time: 11:19:42 Pat Name: NAN HOLM Department: Room: Gender: Office Machine Embossograph Operator: : 1940 Requested By: Pantera Harmon Order Number: [id number] MD: Gigi Red Measurements Intervals [place] Rate: 85 P: 10 [place]: 150 QRS: -35 QRSD: 97 T: 16 QT: 383 QTc: 456 Interpretive Statements Sinus rhythm Left axis deviation Probable anterior infarct, age indeterminate Compared to ECG 01/29/2021 09:14:32 Myocardial infarct finding still present Electronically Signed On 05-02-2021 15:51:06 HYDRO SPRAYER OPERATOR by Gigi Red [email or web address] <ELECTRONICALLY SIGNED> By: Gigi Red MD, FAC 05/02/21 1551 1119 1119 Gigi Red MD, [facility] /EPI
== END 2021-05-02 14:00 | disposition home or self-care (01) ==
LOC: M.ERS 10:44
PROVIDERS: Physician Assistant
DX: K52.9 Noninfective gastroenteritis and colitis, unspecified (principal); Z20.822 Contact with and (suspected) exposure to COVID-19; R11.2 Nausea with vomiting, unspecified; E03.9 Hypothyroidism, unspecified; I10 Essential (primary) hypertension; J45.909 Unspecified asthma, uncomplicated; M19.90 Unspecified osteoarthritis, unspecified site; I48.91 Unspecified atrial fibrillation; Z98.890 Other specified postprocedural states; Z96.653 Presence of artificial knee joint, bilateral; Z79.2 Long term (current) use of antibiotics; Z79.899 Other long term (current) drug therapy; Z88.5 Allergy status to narcotic agent; Z88.8 Allergy status to other drugs, medicaments and biological substances; Z88.6 Allergy status to analgesic agent; Z88.0 Allergy status to penicillin; Z88.2 Allergy status to sulfonamides